=== PATIENT | female | born 1995 | race Hispanic/Latino ===

== ENCOUNTER 2018-08-10 14:46 | Emergency (ER) | payer OTHER ==
[~2018-08-10] VITALS: Ht 170.2 cm; Wt 70.5 kg
[~2018-08-10 14:46] MED LIST: AMOXICILLIN500 MG PO; BENZOYL PEROXIDE EX; DOXYCYCL HYC100 M3 PO
[2018-08-10 15:38] LABS: HEMATOCRIT 40.1 % (37.0-47.0); HEMOGLOBIN 13.3 g/dl (12.0-16.0); IMMATURE GRANULOCYTES 0.3 % (0.0-5.0); MEAN CELL VOLUME 86.1 fL CALC (80.0-100.0); MEAN CORPUSCULAR HGB 28.5 pG CALC (26.0-32.0); MEAN CORPUSCULAR HGB CONC 33.2 g/L CALC (32.0-36.0); NEUT# 8.8 thou/uL (2.00-7.15); RED BLOOD COUNT 4.66 mill/uL (4.20-5.60); RED CELL DISTRI WIDTH 12.6 % (11.5-15.5)
[2018-08-10 15:39] LABS: URINE BILIRUBIN - DIPSTICK NEGATIVE (NEGATIVE); URINE BLOOD DIPSTICK NEGATIVE (NEGATIVE); URINE COLOR YELLOW; URINE GLUCOSE - DIPSTICK NEGATIVE (NEGATIVE); URINE KETONE >=80 mg/dL (NEGATIVE); URINE LEUK ESTERASE NEGATIVE (NEGATIVE); URINE NITRITE - DIPSTICK NEGATIVE (Negative); URINE PROTEIN - DIPSTICK NEGATIVE (NEG-TRACE); URINE SPECIFIC GRAVITY 1.025; URINE UROBILINOGEN - DIPSTICK 0.2 E.U./dL (0.2)
[2018-08-10 15:52] LABS: ALBUMIN 4.5 g/dL (3.2-5.0); ALKALINE PHOSPHATASE 60 u/l (38-126); ANION GAP 16 (6-22 (CALC)); BILIRUBIN, TOTAL 0.7 mg/dL (0.0-1.4); BUN 7 mg/dL (7-17); BUN/CREATININE RATIO 13 (12-20 (CALC)); CARBON DIOXIDE 23 mmol/l (22-30); CHLORIDE 107 mmol/l (95-108); CREATININE 0.5 mg/dL (0.5-1.0); GFR > 60 ML/MIN (>=60 (CALC)); GFR FOR AFR.AMER. > 60 ML/MIN (>=60 (CALC)); LIPASE 42 u/l (23-300); POTASSIUM 3.9 mmol/l (3.5-5.1); SGOT/AST 20 u/l (14-36); SODIUM 142 mmol/l (137-146); TOTAL PROTEIN 7.5 g/dL (6.3-8.2)
[2018-08-10] MEDS ORDERED: PEPCID20 MG PO (16:28)
[2018-08-10] MEDS ORDERED: BENTYL10 MG PO (16:28)
[2018-08-10 16:32] VITALS: BP 139/88
== END 2018-08-10 16:36 | disposition home or self-care (01) | DRG 392 ==
LOC: ED 14:46
DX: R10.13 Epigastric pain (principal); R19.7 Diarrhea, unspecified

== ENCOUNTER → 2018-11-08 | Outpatient (REF) ==
[~2018-11-08] MED LIST changes: +BENTYL10 MG PO; +PEPCID20 MG PO
[2018-11-08 10:31] LABS: CHOLESTEROL HDL RATIO 2.6 (<4.4 (CALC))
== END | disposition home or self-care (01) | DRG 951 ==
LOC: LAB 07:53
PROVIDERS: ATTEND Family Medicine
DX: Z02.6 Encounter for examination for insurance purposes (principal)

== ENCOUNTER 2024-02-25 08:42 | Day surgery (SDC) | payer SELFPAY ==
[~2024-02-25] VITALS: Ht 167.6 cm; Wt 65.8 kg
[2024-02-25] MEDS ORDERED: LACTATED RINGER'S 1,000 ML IV ONE (08:45)
[2024-02-25] MEDS ORDERED: ceFAZolin Sodium 2 GM/VIAL SDV ONE (08:45)
[2024-02-25] MEDS ORDERED: FAMOTIDINE 10MG/ML 2ML SDV IV ONE (08:45)
[2024-02-25] MEDS ORDERED: SODIUM CHLORIDE 0.9% 100 ML IV ONE (08:46)
[2024-02-25] MEDS ORDERED: STERILE WATER FOR IRRIGATION 1,000 ML BTL IR ONE (09:26)
[2024-02-25] MEDS ORDERED: LIDOcaine HCl 1% (Local Anesth.) 20 ML VIAL ONE (09:26)
[2024-02-25] MEDS ORDERED: SODIUM CHLORIDE 0.9% 1,000 ML IV ONE (09:26)
[2024-02-25] MEDS ORDERED: SODIUM CHLORIDE 0.9% 10 ML SYR ONE ×2 (09:46→09:48)
[2024-02-25] MEDS ORDERED: PERCOCET 5/325M1 TAB PO (10:38)
[2024-02-25] MEDS ORDERED: HYDROmorphone HCL 2 MG/AMP ONE (11:14)
[2024-02-25] MEDS ORDERED: ONDANSETRON HCl 4 MG/2 ML SDV ONE (12:08)
[2024-02-25 12:34] VITALS: BP 111/75
[2024-02-25] MEDS ORDERED: LACTATED RINGER'S 1,000 ML BAG IV ONE (14:09)
[2024-02-25] MEDS ORDERED: LIDOCAINE HCL 2% 2ML SDV IV ONE (14:09)
[2024-02-25] MEDS ORDERED: SUGAMMADEX SODIUM 200 MG/2 ML SDV IV ONE (14:09)
[2024-02-25] MEDS ORDERED: ONDANSETRON HCl 4 MG/2 ML SDV IV ONE (14:09)
[2024-02-25] MEDS ORDERED: PROPOFOL 200 MG/20 ML VIAL IV ONE (14:09)
[2024-02-25] MEDS ORDERED: DEXAMETHASONE SODIUM PHOSPHATE PF 10 MG/ML SDV IV ONE (14:09)
[2024-02-25] MEDS ORDERED: ACETAMINOPHEN 1,000 MG/100 ML VIAL IV ONE (14:09)
[2024-02-25] MEDS ORDERED: ROCURONIUM BROMIDE 10 MG/ML 5ML VIAL IV ONE (14:09)
[2024-02-25] MEDS ORDERED: KETOROLAC TROMETHAMINE 30 MG/ML SDV IV ONE (14:09)
[2024-02-25] MEDS ORDERED: MORPHINE SULFATE 4 MG/ML VIAL IV ONE (14:09)
[2024-02-25] MEDS ORDERED: GLYCOPYRROLATE 0.2 MG/ML IV ONE (14:09)
[2024-02-25] MEDS ORDERED: MIDAZOLAM HCL 2 MG/2 ML VIAL IV ONE (14:09)
== END 2024-02-25 12:35 | disposition home or self-care (01) | DRG 419 ==
LOC: ORM 08:42
PROVIDERS: ATTEND Surgery
PROC: 0FT44ZZ Resection of Gallbladder, Percutaneous Endoscopic Approach (ICD-10-PCS; principal; 2024-02-25)
DX: K80.10 Calculus of gallbladder with chronic cholecystitis without obstruction (principal)
CPT/HCPCS: J0131; J0690; J1100

== ENCOUNTER 2024-03-30 12:27 | Emergency (ER) | payer MEDICAID ==
[2024-03-30] VITALS (13 sets, daily range): BP systolic 96–126; BP diastolic 62–79
[~2024-03-30] VITALS: Ht 167.6 cm; Wt 67.2 kg
[~2024-03-30 12:27] MED LIST changes: +OMEPRAZOLE20 MG PO; +PERCOCET 5/325M1 TAB PO
[2024-03-30] MEDS ORDERED: ONE A DAY WOMEN PO (12:55)
[2024-03-30 13:39] LABS: BASO% 0.3 % (0-3); EOS% 0.5 % (0-8); HEMOGLOBIN 13.3 g/dl (12.0-16.0); MEAN CELL VOLUME 87.1 fL CALC (80.0-100.0); MEAN CORPUSCULAR HGB CONC 33.3 g/dL CAL (32.0-36.0); MONO% 6.9 % (2-13); NEUT# 4.09 thou/uL (2.00-7.15); NEUT% 65.3 % (42-76); RED BLOOD COUNT 4.59 mill/uL (4.20-5.60); RED CELL DISTRI WIDTH 13.4 % (11.5-15.5)
[2024-03-30 13:48] LABS: URINE BILIRUBIN - DIPSTICK Negative (NEGATIVE); URINE BLOOD DIPSTICK Moderate (NEGATIVE); URINE GLUCOSE - DIPSTICK Negative (NEGATIVE); URINE KETONE 80 mg/dL (NEGATIVE); URINE LEUK ESTERASE Negative (NEGATIVE); URINE NITRITE - DIPSTICK Negative (Negative); URINE PH 5.5 (4.5-8.0); URINE PROTEIN - DIPSTICK Negative (NEG-TRACE); URINE SPECIFIC GRAVITY >=1.030; URINE UROBILINOGEN - DIPSTICK 0.2 E.U./dL (0.2)
[2024-03-30 13:50] LABS: URINE COLOR Yellow; URINE RBC 25-50 RBC/hpf (0-5)
[2024-03-30 14:12] LABS: ALBUMIN 4.8 g/dL (3.2-5.0); BILIRUBIN, TOTAL 0.6 mg/dL (0.02-1.3); CREATININE 0.6 mg/dL (0.5-1.0); POTASSIUM 3.4 mmol/l (3.5-5.1); TOTAL PROTEIN 7.3 g/dL (6.3-8.2)
== END 2024-03-30 16:44 | disposition home or self-care (01) ==
LOC: ED 12:27
PROVIDERS: Nurse Practitioner
DX: O20.0 Threatened abortion (principal); Z3A.01 Less than 8 weeks gestation of pregnancy